=== PATIENT | male | born 1930 | race Caucasian/White ===

== ENCOUNTER 2017-02-03 16:08 | Outpatient (CLI) | payer OTHER, MEDICARE ==
--- NOTE | 2017-02-03 16:27 | DIAGNOSTIC IMAGING REPORT ---
PROCEDURE: XR CHEST 2 VIEW INDICATION: COUGH TECHNIQUE: PA and lateral views. COMPARISON: None. FINDINGS: Lungs are clear. Heart and mediastinum are normal. Thorax is normal. IMPRESSION: 1. Negative chest.
== END 2017-02-03 23:00 ==
LOC: XR SRH 16:08
DX: R05 Cough (principal); R68.83 Chills (without fever)